=== PATIENT | female | born 1945 | race Caucasian/White ===

== ENCOUNTER 2025-08-03 11:35 | Inpatient (IN) | payer MEDICARE, BC ==
[~2025-08-03] VITALS: Ht 152.4 cm; Wt 50.8 kg
[2025-08-04 11:08] VITALS: BP 124/71; TEMP 98.2
[2025-08-04 11:25] VITALS: BP 124/71; TEMP 98.2
[2025-08-04 16:00] VITALS: BP 146/64; TEMP 97; O2SAT 97
[2025-08-04] MEDS ORDERED: ACET325T53 PO (17:31)
[2025-08-04] MEDS ORDERED: DOCU100T2 PO (17:31)
[2025-08-04] MEDS ORDERED: ATOR10TA PO (17:31)
[2025-08-04] MEDS ORDERED: MAG355OR18 PO (17:33)
[2025-08-04] MEDS ORDERED: MAGN400O6 PO (17:33)
[2025-08-04] MEDS ORDERED: ENOX40DI SQ (17:33)
[2025-08-04] MEDS ORDERED: MORP4CAR IV (17:43)
[2025-08-04] MEDS ORDERED: MORP2CAR IV (17:43)
[2025-08-04] MEDS ORDERED: ZOFRAN IV (17:44)
[2025-08-04] MEDS ORDERED: POLY17PO4 PO (17:45)
[2025-08-04] MEDS ORDERED: VALS160T29 PO (17:51)
[2025-08-04] MEDS ORDERED: SENN8.6T19 PO (17:51)
[2025-08-04] MEDS ORDERED: HYDR20VI6 IV (17:51)
[2025-08-04 20:00] VITALS: BP 126/58; TEMP 97.5; O2SAT 94
[2025-08-04] MEDS ORDERED: ACETAMINOPHEN 325 MG TABLET-SA PATIENTS-PAIN ONLY PO PRN (20:00)
[2025-08-04] MEDS: SENNOSIDES 1 TABLET PO SCH (20:53)
[2025-08-04] MEDS: ATORVASTATIN 10 MG TABLET PO SCH (20:54)
[2025-08-04] MEDS: ACETAMINOPHEN 325 MG TABLET PO PRN (20:55)
[2025-08-05 06:52] VITALS: BP 124/63; TEMP 97.5; O2SAT 93
[2025-08-05 07:36] LABS: PLATELET COUNT (AUTO) 226 K/uL (179-408); RED BLOOD CELL COUNT(AUTO) 4.16 MIL/uL (3.63-4.92); RED CELL DISTRIBUTION WIDTH 13.4 % (12.3-17.7); WHITE BLOOD COUNT (AUTO) 4.4 K/uL (3.8-11.8)
[2025-08-05 08:01] LABS: CREATININE 0.8 mg/dL (0.6-1.3); SODIUM SERUM 141 mmol/L (136-145); UREA NITROGEN, BLOOD 25 mg/dL (7-18)
[2025-08-05] MEDS: DOCUSATE SODIUM 100 MG CAPSULE PO SCH (08:25)
[2025-08-05] MEDS: VALSARTAN 160 MG TABLET PO SCH (08:31)
[2025-08-05] MEDS ORDERED: DOCUSATE SODIUM 100 MG CAPSULE PO SCH (09:00)
[2025-08-05] MEDS: ENOXAPARIN SODIUM 40 MG/0.4 ML DISP.SYRIN SQ SCH (10:04)
[2025-08-05] MEDS: HYDROCODONE/APAP 5-325MG TABLET PO PRN (10:04)
[2025-08-05 20:31] VITALS: BP 101/54; TEMP 97.8; O2SAT 97
[2025-08-06 07:00] VITALS: BP 106/54; TEMP 98.1; O2SAT 94
[2025-08-06 08:30] VITALS: BP 142/68; TEMP 97.6; O2SAT 95
[2025-08-06] MEDS: IV NS 1000 ML 1,000 ML IV ONE (09:49)
[2025-08-06] MEDS: ENSURE ENLIVE (VAN) 240 ML LIQUID PO SCH (10:07)
[2025-08-06 18:30] VITALS: BP 139/67; TEMP 97.5; O2SAT 97
[2025-08-06 19:40] VITALS: BP 114/59; TEMP 97.7; O2SAT 97
[2025-08-07 06:49] VITALS: BP 122/54; TEMP 98.2; O2SAT 97
[2025-08-07] MEDS: ONDANSETRON HCL 4 MG TABLET PO PRN (16:44)
[2025-08-07 20:01] VITALS: BP 131/49; TEMP 98.2; O2SAT 97
[2025-08-08] MEDS: OXYCODONE HCL 5 MG TABLET PO PRN (07:01)
[2025-08-08 08:01] VITALS: BP 158/83; TEMP 97.9; O2SAT 96
[2025-08-08 10:46] VITALS: BP 144/78; O2SAT 98
[2025-08-08] MEDS ORDERED: HYDROCORTISONE 1% CREAM 30 GM TUBE TP PRN (11:15)
[2025-08-08] MEDS ORDERED: diphenhydrAMINE 25 MG CAP PO PRN (12:15)
[2025-08-08 15:00] VITALS: BP 140/69; TEMP 98.1
[2025-08-08] MEDS: CALAMINE LOTION 120 ML BOTTLE TOP ONE (15:27)
[2025-08-08] MEDS ORDERED: METHYL SALICYLATE/MENTHOL CREAM 28 GM TUBE TOP PRN (18:30)
[2025-08-08] MEDS: MAGNESIUM HYDROXIDE 30 ML LIQUID UDC PO PRN (20:30)
[2025-08-08 21:28] VITALS: BP 142/66; TEMP 98.2; O2SAT 98
[2025-08-09 06:46] VITALS: BP 138/70; TEMP 98; O2SAT 98
[2025-08-09 08:00] VITALS: BP 128/59; TEMP 98.4; O2SAT 96
[2025-08-09 15:52] VITALS: BP 133/64; TEMP 98.6; O2SAT 97
[2025-08-09 21:12] VITALS: BP 130/60; TEMP 98.4; O2SAT 97
[2025-08-10 06:38] VITALS: BP 129/68; TEMP 97.3; O2SAT 97
[2025-08-10 09:36] VITALS: BP 115/75; TEMP 98.1; O2SAT 97
[2025-08-10 10:36] LABS: *BILIRUBIN,URIN NEGATIVE (NEGATIVE); *BLOOD, URINE NEGATIVE (NEGATIVE); *CLARITY,URINE CLEAR (CLEAR); *COLOR,URINE YELLOW (YELLOW); *KETONES,URINE NEGATIVE (NEGATIVE); *PROTEIN,URINE 1+ (NEGATIVE); *UROBILINOGEN,URINE 0.2 E.U./dl (NORMAL); LEUKOCYTE ESTERASE ,URINE NEGATIVE (NEGATIVE); NITRITE, URINE NEGATIVE (NEGATIVE); UGLUCOSE NEGATIVE (NEGATIVE)
[2025-08-10 10:45] LABS: PLATELET COUNT (AUTO) 300 K/uL (179-408); RED BLOOD CELL COUNT(AUTO) 4.08 MIL/uL (3.63-4.92); RED CELL DISTRIBUTION WIDTH 13.4 % (12.3-17.7); WHITE BLOOD COUNT (AUTO) 3.8 K/uL (3.8-11.8)
[2025-08-10 11:18] LABS: CREATININE 0.8 mg/dL (0.6-1.3); SODIUM SERUM 139 mmol/L (136-145); UREA NITROGEN, BLOOD 19 mg/dL (7-18)
[2025-08-10 11:20] LABS: SQUAMOUS EPITHELIAL CELL,UR FEW /HPF (NONE SEEN); URINE AMORPHOUS PHOSPHATES MODERATE /HPF
[2025-08-10 11:24] LABS: ASPARTATE AMINOTRANSFERASE 25 U/L (15-37); TOTAL PROTEIN, SERUM 6.8 g/dL (6.4-8.2)
[2025-08-10 17:14] VITALS: BP 110/49; TEMP 97.7; O2SAT 99
[2025-08-10] MEDS: LIDOCAINE 5% PATCH TD SCH (17:14)
[2025-08-10 20:10] VITALS: BP 118/62; TEMP 98.2; O2SAT 99
[2025-08-11 07:40] VITALS: BP 124/70; TEMP 98; O2SAT 98
[2025-08-11] MEDS: LIDOCAINE 5% PATCH TD SCH (09:28)
[2025-08-11] MEDS: MAG HYDROX/AL HYDROX/SIMETH 30 ML LIQUID UDC PO PRN (10:39)
[2025-08-11] MEDS ORDERED: MIRALAX 17 GM POWD.PACK PO PRN (10:45)
[2025-08-11 19:29] VITALS: BP 148/77; TEMP 98.1; O2SAT 98
[2025-08-12 06:17] VITALS: BP 135/66; TEMP 98.1; O2SAT 95
[2025-08-12 08:30] VITALS: BP 112/68; TEMP 98; O2SAT 96
[2025-08-12] MEDS ORDERED: ONDANSETRON HCL 4 MG TABLET PO PRN (12:00)
[2025-08-12] MEDS: ENSURE ENLIVE (VAN) 240 ML LIQUID PO SCH (16:57)
[2025-08-12 19:30] VITALS: BP 134/71; TEMP 97.9; O2SAT 96
[2025-08-12] MEDS: PREGABALIN 25 MG CAPSULE PO SCH (20:28)
[2025-08-13 06:47] VITALS: BP 120/61; TEMP 98.2; O2SAT 95
[2025-08-13 08:00] VITALS: BP 106/52; TEMP 97.7; O2SAT 96
[2025-08-13] MEDS: PREGABALIN 25 MG CAPSULE PO PRN (08:41)
[2025-08-13 16:00] VITALS: BP 104/72; TEMP 97.6; O2SAT 96
[2025-08-13 18:30] VITALS: BP 104/72; TEMP 97.6
[2025-08-13 21:19] VITALS: BP 110/58; TEMP 98.9; O2SAT 96
[2025-08-14 06:37] VITALS: BP 123/64; TEMP 97.7; O2SAT 98
[2025-08-14 08:00] VITALS: BP 112/49; TEMP 98.1; O2SAT 95
[2025-08-14 16:00] VITALS: BP 136/70; TEMP 98; O2SAT 98
[2025-08-14 18:30] VITALS: BP 136/70; TEMP 98
[2025-08-14 20:00] VITALS: BP 122/60; TEMP 98.1; O2SAT 95
[2025-08-15 06:00] VITALS: BP 120/57; TEMP 98.3; O2SAT 95
[2025-08-15 17:17] VITALS: BP 122/74; TEMP 98.6
[2025-08-15 20:00] VITALS: BP 127/58; TEMP 98; O2SAT 97
[2025-08-16 06:28] VITALS: BP 126/63; TEMP 97.5; O2SAT 95
[2025-08-16 11:49] VITALS: BP 115/70; TEMP 97.8; O2SAT 98
[2025-08-16 20:50] VITALS: BP 117/54; TEMP 97.8; O2SAT 96
[2025-08-17 06:44] VITALS: BP 117/50; TEMP 97.5; O2SAT 96
[2025-08-17 08:08] VITALS: BP 111/62; TEMP 98.1; O2SAT 97
[2025-08-17 16:25] VITALS: BP 141/51; TEMP 97.7; O2SAT 98
== END 2025-08-17 16:45 | disposition home health service (06) | DRG 561 ==
PROVIDERS: ADMIT Physical Medicine & Rehabilitation Pain Medicine; ATTEND Physical Medicine & Rehabilitation Pain Medicine
DX: S32.029D Unspecified fracture of second lumbar vertebra, subsequent encounter for fracture with routine healing (principal); V03.10XD Pedestrian on foot injured in collision with car, pick-up truck or van in traffic accident, subsequent encounter; E86.0 Dehydration; I10 Essential (primary) hypertension; Z88.5 Allergy status to narcotic agent; E78.5 Hyperlipidemia, unspecified; K59.00 Constipation, unspecified; I95.1 Orthostatic hypotension; S40.862A Insect bite (nonvenomous) of left upper arm, initial encounter; S40.861A Insect bite (nonvenomous) of right upper arm, initial encounter; W57.XXXA Bitten or stung by nonvenomous insect and other nonvenomous arthropods, initial encounter; Y93.9 Activity, unspecified; Y92.89 Other specified places as the place of occurrence of the external cause; N85.8 Other specified noninflammatory disorders of uterus; M19.90 Unspecified osteoarthritis, unspecified site
CPT/HCPCS: 36415; 71045; 72148; 73521; 83605; 85025; 87040; 87086; 97535-GO-CO; A9150; J1650; J7040; Q0162